=== PATIENT | female | born 1955 | race Caucasian/White ===

== ENCOUNTER → 2016-10-24 | Outpatient (CLI) | payer MEDICARE, BC ==
[~2016-10-24] VITALS: Ht 162.6 cm; Wt 68.3 kg
[~2016-10-24] MED LIST: ACIDOPHILIS PO; ATIVAN 1MG T1 MG/TAB PO; COLACE 100100 MG/CAP PO; COUMADIN 3MG3 MG/TAB PO; COZAAR 50MG50 MG/TAB PO; DUO-KAPS1 CAP PO; EFFEXOR-XR150 MG PO; LAMICTAL 100MG100 MG PO; MYRBETR25MG PO; NATURE'S BLEND160 MG PO; NEURONTIN100 MG/CAP PO; NORVASC 10MG10 MG PO; REQUIP5 MG PO; TOPROL XL 25MG25 MG PO; ZANTAC 150MG T150 MG PO
[2016-10-24 09:38] VITALS: BP 146/76; PULSE 78
== END ==
LOC: COL.CARD 09:06
DX: Z53.9 Procedure and treatment not carried out, unspecified reason (principal)

== ENCOUNTER → 2016-11-10 | Outpatient (CLI) | payer MEDICARE, BC ==
[~2016-11-10] VITALS: Ht 162.6 cm; Wt 63.0 kg
[2016-11-10 11:32] VITALS: BP 163/79; PULSE 72
[2016-11-10 12:12] VITALS: BP 170/80; PULSE 59
[2016-11-10 12:14] VITALS: BP 157/75; PULSE 89
[2016-11-10 12:15] VITALS: BP 159/79; PULSE 89
[2016-11-10 12:16] VITALS: BP 158/80; PULSE 84
== END ==
LOC: COL.CARD 10:45
DX: R06.00 Dyspnea, unspecified (principal); I77.1 Stricture of artery; I74.2 Embolism and thrombosis of arteries of the upper extremities
CPT/HCPCS: A9502; J2785

== ENCOUNTER → 2016-12-11 | Outpatient (CLI) | payer MEDICARE, BC | LOC: COL.RAD 10:00 | DX: I70.8 Atherosclerosis of other arteries (principal) | CPT/HCPCS: Q9967 ==

== ENCOUNTER → 2017-03-19 | Outpatient (REF) ==
[2017-03-19 19:13] LABS: C-REACTIVE PROTEIN 0.8 mg/dL (0.0-0.9)
[2017-03-19 19:41] LABS: THYROID STIMULATING HORMONE 1.55 uIU/mL (0.465-4.680)
== END ==
LOC: ZLAB.WCH 18:09
PROVIDERS: Internal Medicine
DX: Z01.89 Encounter for other specified special examinations (principal)

== ENCOUNTER 2018-11-19 15:30 | Emergency (ER) | payer MEDICARE, BC ==
[~2018-11-19] VITALS: Ht 162.6 cm; Wt 65.9 kg
[2018-11-19 15:37] VITALS: TEMP 98.3
[2018-11-19 16:13] LABS: BASO # 0.1 (0.0-0.2); BASO % 0.4 % (0.0-2.0); EOS # 0.3 (0.0-0.7); EOS % 1.8 % (0-4.0); GRAN # 9.5 (1.4-6.5); GRAN % 68.8 % (42.2-75.2); HEMATOCRIT 42.4 % (37.0-47.0); LYMPH # 2.6 (1.2-3.4); LYMPH % 18.6 % (20.0-51.0); MEAN CELL VOLUME 87 fl (80.0-100.0); MEAN CORPUSCULAR HEMOGLOBIN 29 pg (27.0-31.0); MEAN CORPUSCULAR HGB CONC 33 g/dl (33.0-37.0); MEAN PLATELET VOLUME 10.7 fl (7.4-10.4); MONO # 1.4 (0.1-0.6); MONO % 9.9 % (1.7-9.3); PLATELET COUNT 442 K/mm3 (130-400); RED BLOOD COUNT 4.85 M/mm3 (4.10-5.30); REDCELL DISTRIBUTION WIDTH-CV 14.2 % (11.5-14.5)
[2018-11-19 16:18] LABS: INR 1.2 (0.8-3.0); PROTHROMBIN TIME 13.1 SECONDS (9.7-12.8)
[2018-11-19] MEDS ORDERED: NORCO 325 MG-101 TAB (16:44)
[2018-11-19 17:17] LABS: ALBUMIN 4.6 gm/dL (3.5-5.0); BILIRUBIN,TOTAL 0.5 mg/dL (0.0-1.0); CREATININE, serum 0.74 (0.52-1.25); POTASSIUM 3.8 mmol/L (3.4-5.0); TOTAL PROTEIN 7.8 gm/dL (6.4-8.2)
[2018-11-19 21:19] VITALS: BP 195/90; PULSE 65
== END 2018-11-19 18:02 | disposition short-term general hospital (02) ==
LOC: COL.ER 15:30
PROVIDERS: Emergency Medicine
DX: I74.3 Embolism and thrombosis of arteries of the lower extremities (principal); I10 Essential (primary) hypertension; G62.9 Polyneuropathy, unspecified; Z90.710 Acquired absence of both cervix and uterus
CPT/HCPCS: J1170; J1644; J7030

== ENCOUNTER 2018-11-26 08:46 | Inpatient (IN) | payer MEDICARE, BC ==
[~2018-11-26] VITALS: Ht 162.6 cm; Wt 64.1 kg
[~2018-11-26 08:46] MED LIST changes: -DUO-KAPS1 CAP PO; +MULTI-VITAMIN W1 TA1 PO; +NORCO 325 MG-101 TAB
[2018-11-26 12:43] VITALS: BP 156/62; PULSE 65; TEMP 98.1
--- NOTE | 2018-11-26 13:50 | NUR ---
Pt admitted via wheelchair with STAFF ELECTRONIC WARFARE OFFICER assist. arrived and reviewed POC and home meds, pharmacy, and paperwork.
[2018-11-26] MEDS ORDERED: ROXICODONE 55 MG/TAB PO (15:27)
[2018-11-26] MEDS ORDERED: ASPIRIN 81M81 MG/TA2 PO (15:30)
[2018-11-26] MEDS ORDERED: LOVENOX 100100 MG/ML SQ (15:33)
[2018-11-26] MEDS ORDERED: NEURONTIN100 MG/CAP PO (15:35)
[2018-11-26] MEDS ORDERED: LAMICTAL 25MG T25 MG PO (15:37)
[2018-11-26] MEDS ORDERED: COUMADIN 3MG3 MG/TAB PO (15:39)
[2018-11-26] MEDS ORDERED: NORVASC 10MG10 MG PO (15:41)
[2018-11-26] MEDS ORDERED: DULCOLAX S10 MG/SUPP RC (15:42)
[2018-11-26] MEDS ORDERED: ZYRTEC 10MG10 MG PO (15:43)
[2018-11-26] MEDS ORDERED: MELAT3MGTAB PO (15:54)
[2018-11-26] MEDS ORDERED: AMBIEN 10MG10 MG PO (16:11)
[2018-11-26 18:13] VITALS: BP 160/63; PULSE 67; TEMP 97.3
--- NOTE | 2018-11-26 21:00 | NUR ---
HS meds all reviewed and given along with ativan to help relax/sleep. Patient alert and oriented x 4. LUE restricted in movement/tender to touch/weak radial pulse but warm/pink. Ambulates with cane held by RUE to the bathroom. Gait slow. Manages all toileting tasks. Handed patient clean panty liner. States did HS care earlier and cleanses hands with foam cleanser. Rests self back in bed. Lungs CTA. Pedal pulses feet strong. Hand career center advisor egual but only able to use first 2 fingers and thumb to orthodontist on her left.
--- NOTE | 2018-11-26 21:02 | NUR ---
Pt did therapies. Incision to LAC area is reddened, edges approximated and puckered up together, no dom, appears to have Sub-Q suture. Pt alert, pleasant, forgetful, anxious. Amb CGA with gait belt, cane. To bed with alarm on, call light in reach. She wrote her menus down for tomorrow. Report to ZOE Cardenas. Pt toileted without riser, continent in own underwear but uses pantyliner. No BM. Takes meds.
--- NOTE | 2018-11-27 00:19 | NUR ---
Patient rests quietly in bed. Respirations with ease.
--- NOTE | 2018-11-27 02:00 | NUR ---
Patient rests with eyes closed. Respirations with ease.
[2018-11-27 04:20] VITALS: BP 165/79; PULSE 67; TEMP 98.6
--- NOTE | 2018-11-27 05:06 | NUR ---
Patient up once during the night around 0300 to void. Rests with eyes closed. Respirations with ease.
[2018-11-27 05:56] VITALS: BP 165/83
[2018-11-27 07:30] LABS: INR 1.7 (0.8-3.0); PROTHROMBIN TIME 19.4 SECONDS (9.7-12.8)
--- NOTE | 2018-11-27 08:55 | NUR ---
Report from ZOE Cardenas. Pt to chair for breakfast. Called to dress prior to therapy. Amb with gait belt, CGA, to BR, continent, wears liner for stress incont. Set up for dressing. A&O, pleasant, takes pills with thin liquids. States she cannot drink Ensure d/t potassium level as she's on coumadin.
--- NOTE | 2018-11-27 09:53 | NUR ---
Initial visit; Patient thanked Taxi Dancer for looking in on her and offering God's blessings.
--- NOTE | 2018-11-27 12:26 | NUR ---
Pt has two friends visiting/praying with her.
--- NOTE | 2018-11-27 12:33 | NUR ---
Pt preferred to take neurontin early rather than oxycodone for pain. Provided nilsa crackers and peanut butter for snack after lunch.
--- NOTE | 2018-11-27 15:37 | NUR ---
SW met with patient for initial intake and to review team conference notes. Patient lives independently at home with her . Patient's PCP is Dr Carrillo and she obtains prescriptions from [facility] pharmacy. Patient does not use any home health services and she uses a cane for ambulation. Patient reports she does not have a DPOA. SW reported that the anticipated discharge date is Sunday 12/03 and she will receive outpatient PT and OT. Balbina also reported that the IPR would like to do a family conference on Saturday 12/02 at 1pm. BALBINA will contact patient's about this. BALBINA will continue to follow. BALBINA contacted patient's , Sixto. He reports he is available Sunday at 1pm for the family conference.
[2018-11-27 15:59] VITALS: BP 156/69; PULSE 68; TEMP 97.5
--- NOTE | 2018-11-27 18:46 | NUR ---
Pt in bed, alarm turned on, call lt in reach.
--- NOTE | 2018-11-27 20:30 | NUR ---
Patient up to the bathroom and voids and manages all toileting tasks. Rests back in bed. Has some numbness/tingling to finger tips and pain. HS meds along with ativan per request reviewed and given. Alert and oriented x 4. Pleasant. Lights turned down and door shut.
--- NOTE | 2018-11-28 00:30 | NUR ---
Rests with eyes closed. Respirations with ease.
--- NOTE | 2018-11-28 03:16 | NUR ---
Patient has been resting with eyes closed. Respirations with ease.
--- NOTE | 2018-11-28 03:18 | NUR ---
Patient has been resting with eyes closed. Respirations with ease.
[2018-11-28 05:39] VITALS: BP 133/75; BP 158/57; PULSE 66; TEMP 98.5
--- NOTE | 2018-11-28 05:45 | NUR ---
Patient awakened for vitals. States pain in fingers better this am 3/10. States woke up once during the night at 0200 to void and back to bed. Gait swaying at times when ambulates to the bathroom. Rests back in bed.
[2018-11-28 07:20] LABS: INR 2.1 (0.8-3.0); PROTHROMBIN TIME 23.7 SECONDS (9.7-12.8)
--- NOTE | 2018-11-28 08:42 | NUR ---
Report from ZOE Cardenas. Pt called after toileting. She had dressed herself, to sink with SBA for oral cares and hand hygiene. Reports LAC incisional pain 4/10 but 6/10 in palm. To wheelchair with alarm on, no foot rests, call light in reach.
--- NOTE | 2018-11-28 09:20 | NUR ---
Pt saved vanilla ensure for snack. Does not like her fingers referred to as "clubbed." She informed FATIMAH Ryan thusly.
--- NOTE | 2018-11-28 12:05 | NUR ---
Pt inquired about amount of Vit K in Theragran. Shawn, Pharmacist will return call.
--- NOTE | 2018-11-28 12:11 | NUR ---
Pt's , and a friend from [place] visiting.
--- NOTE | 2018-11-28 16:55 | NUR ---
Showed pt how to find radial and ulnar pulses with doplar to left arm. Marked with permanent marker for reference. Pt in wheelchair with alarm on.
--- NOTE | 2018-11-28 21:00 | NUR ---
PT SITTING UP IN BED. A&OX4. CHEERFUL AND TALKATIVE. LT RADIAL AND ULNAR ARTEIES AUSCUL WITH DOPPLER- ULNAR DIFFICULT TO FIND. ATIVAN GIVEN FOR HS SLEEP. PAIN TOLERABLE AT LEVEL 4/10. DENIES NEED FOR PAIN MED AT THIS TIME. LT ARM ELEVATED ON PILLOW. CALL LGHT IN REACH. BED ALARM SET.
[2018-11-29 04:46] VITALS: BP 135/71; BP 142/62; PULSE 67; TEMP 98.5
[2018-11-29 06:55] LABS: INR 2.7 (0.8-3.0); PROTHROMBIN TIME 30.7 SECONDS (9.7-12.8)
[2018-11-29 18:47] VITALS: BP 160/64; PULSE 73; TEMP 97.9
--- NOTE | 2018-11-29 19:25 | NUR ---
Patient attended all therapies today. She is now independent in her room and independent in the hallway with her cane. Patient tolerated diet well this shift. Pain very minimal to her left hand. Will continue to monitor.
--- NOTE | 2018-11-29 20:30 | NUR ---
PT SITTING ON SIDE OF BED. CHEERFUL. MOD I WITH CANE. ABLE TO FIND LEFT RADIAL/ULNAR PULSES WITH DOPPLER. DENIES NEED FOR PAIN MEDICATION.
[2018-11-30 05:07] VITALS: BP 139/59; BP 139/64; PULSE 64; TEMP 98.4
[2018-11-30 08:02] LABS: INR 2.7 (0.8-3.0); PROTHROMBIN TIME 30.9 SECONDS (9.7-12.8)
--- NOTE | 2018-11-30 09:49 | NUR ---
Patient currently working with therapy. Patient independent in her room and independent with getting dressed upper and lower as well as putting shoes on. Patient reporting 5/10 pain to left hand, but refused any pain meds this morning. Tolerating diet well. Denied questions this morning.
--- NOTE | 2018-11-30 14:53 | NUR ---
Patient ambulated with cane outside with staff for some fresh air. Patient reports pain to hand at 2/10 at this time and refuses any pain meds. Will continue to monitor.
[2018-11-30 17:48] VITALS: BP 115/54; PULSE 65; TEMP 97.7
--- NOTE | 2018-11-30 21:00 | NUR ---
PT MOD I IN ROOM/ HALLWAY. STEADY GAIT. DOPPLER USED TO FIND LT RADIAL/ ULNAR PULSES. FULL SENSATION TO HAND. MINIMAL PAIN TO LT ARM.
[2018-12-01 06:00] VITALS: BP 164/71; PULSE 74; TEMP 97.6
[2018-12-01 07:58] LABS: INR 2.6 (0.8-3.0); PROTHROMBIN TIME 29.8 SECONDS (9.7-12.8)
--- NOTE | 2018-12-01 09:39 | NUR ---
Report from ZOE Mcclelland. Pt migdalia Mod I in room/timmons with jelani.
[2018-12-01 10:19] VITALS: BP 147/61
--- NOTE | 2018-12-01 15:36 | NUR ---
Pt reports amb timmons with saeide, made her menus, showered, denied any needs.
[2018-12-01 18:59] VITALS: BP 144/62; PULSE 84; TEMP 97.8
--- NOTE | 2018-12-01 21:00 | NUR ---
PT VERY PLEASANT. MOD I IN ROOM AND JJ. PAIN CONTROLLED. DOPPLER TO LT RADIAL AND ULNAR PULSES PRESENT.
[2018-12-02 05:18] VITALS: BP 108/55; PULSE 65; TEMP 98.6
[2018-12-02 06:59] LABS: INR 2.1 (0.8-3.0); PROTHROMBIN TIME 23.6 SECONDS (9.7-12.8)
[2018-12-02 08:00] VITALS: BP 152/66; BP 163/56; PULSE 68; PULSE 71
--- NOTE | 2018-12-02 13:00 | NUR ---
A Family Conference was conducted with pt & pt's . Also present was PT, OT, & Public Employment Mediator. Public Employment Mediator started by explaining the purpose of the meeting. The therapists explained how pt has been functioning & making good progress. Informed them of scheduled d/c for 12/03/18, which they were both fine w/. Discussed recommendations of outpatient PT/OT, which again they were okay w/. The asked questions which team answered. Pt & are pleased with progress & care pt is receiving.
--- NOTE | 2018-12-02 14:36 | NUR ---
SW met with patient to check in after the weekend. Patient reports she had a good weekend and happy to be discharging home tomorrow. SW will follow up with patient tomorrow before discharge.
[2018-12-02 15:45] VITALS: BP 157/65; PULSE 69; TEMP 98.1
--- NOTE | 2018-12-02 17:50 | NUR ---
Patient attended all therapies today. She continues to be independent in her room and in the hallways. Patient was given a suppository today, but patient inserted it herself. Patient independent with all grooming today. Independent with transfers/toileting/grooming/eating.
--- NOTE | 2018-12-02 21:00 | NUR ---
PT WAS ADMISNISTERED HS MEDS, DOPPLER OF PULSES DONE TO LT LOWER EXTREM, PULSE WAS NOTED TO BOTH AREAS MAKED.
--- NOTE | 2018-12-02 21:30 | NUR ---
PT WAS ADMISNISTERED HS MEDS, DOPPLER OF PULSES DONE TO LT UPPER EXTREM, PULSE WAS NOTED TO BOTH MARKED
--- NOTE | 2018-12-02 21:30 | NUR ---
PT WAS ADMISNISTERED HS MEDS, DOPPLER OF PULSES DONE TO LT UPPER EXTREM, PULSE WAS NOTED TO BOTH AREAS MARKED.
[2018-12-03 05:23] VITALS: BP 143/64; PULSE 66; TEMP 98.4
--- NOTE | 2018-12-03 05:35 | NUR ---
PT WAS ADMISNISTERED HS MEDS, DOPPLER OF PULSES DONE TO LT UPPER EXTREM, PULSE WAS NOTED TO BOTH AREAS MARKED.
--- NOTE | 2018-12-03 05:36 | NUR ---
PT WAS ADMISNISTERED HS MEDS, DOPPLER OF PULSES DONE TO LT UPPER EXTREM, PULSE WAS NOTED TO BOTH MARKED AREAS
--- NOTE | 2018-12-03 05:38 | NUR ---
PT HAD UNEVENTFUL NOC. NO C/O PAIN OR NOTED N/V/D. ORTHOS OBTAINED THIS AM ON PT ORDERED. NO ISSUES OR CONSERNS VOICED OVERNIGHT. APPEARED TO HAVE SLEPT WELL.
[2018-12-03 06:00] VITALS: BP 108/55
[2018-12-03 07:24] LABS: INR 1.9 (0.8-3.0); PROTHROMBIN TIME 21.7 SECONDS (9.7-12.8)
[2018-12-03] MEDS ORDERED: COUMADIN 5MG5 MG/TAB PO (08:47)
[2018-12-03] MEDS ORDERED: TYLENOL 325MG325 MG PO (08:48)
[2018-12-03] MEDS ORDERED: COUMADIN 2MG2 MG/TAB PO (08:48)
[2018-12-03] MEDS ORDERED: PROBIOTIC ACID1 EAC3 PO (08:49)
[2018-12-03] MEDS ORDERED: GOOD SENSE TRIP1 OI1 TP (08:50)
--- NOTE | 2018-12-03 09:31 | NUR ---
SW student met with patient to complete the IM form. SW student presented and explained form. Patient verbalized understanding and signed. SW student provided copy. Patient is to discharge today (12/03) back home with her . No additional needs.
--- NOTE | 2018-12-03 15:08 | NUR ---
Called pt's pharmacy for ordering prescriptions they did not have at home.
--- NOTE | 2018-12-03 22:14 | NUR ---
Printed Pt health summary, discharge summary, and home med list and reviewed with pt and spouse, Sixto. Stressed importance of follow up appts and taking paperwork and orders to these. Reviewed meds, and stressed changes to meds. Belongings gathered by pt and spouse, including cane, glasses, cell phone and sound recordist and clothes. Pt ambulated to vehicle, escourted by SARAH Azevedo for ride home. Pt and denied any questions.
== END 2018-12-03 15:23 | disposition home or self-care (01) | DRG 948 ==
PROVIDERS: ADMIT Internal Medicine
DX: R53.81 Other malaise (principal); G23.9 Degenerative disease of basal ganglia, unspecified; Z66 Do not resuscitate; I70.8 Atherosclerosis of other arteries; I10 Essential (primary) hypertension; F41.8 Other specified anxiety disorders; G25.81 Restless legs syndrome; G13.8 Systemic atrophy primarily affecting central nervous system in other diseases classified elsewhere; Z79.01 Long term (current) use of anticoagulants; I95.1 Orthostatic hypotension
CPT/HCPCS: 99222-AI; 99232-AI; 99239; J1650

== ENCOUNTER → 2019-03-11 | Outpatient (RCR) | payer MEDICARE, BC ==
[~2019-03-11] MED LIST changes: +AMBIEN 10MG10 MG PO; +ASPIRIN 81M81 MG/TA2 PO; +COUMADIN 2MG2 MG/TAB PO; +COUMADIN 5MG5 MG/TAB PO; +DULCOLAX S10 MG/SUPP RC; +GOOD SENSE TRIP1 OI1 TP; +LAMICTAL 25MG T25 MG PO; +LOVENOX 100100 MG/ML SQ; +MELAT3MGTAB PO; +PROBIOTIC ACID1 EAC3 PO; +ROXICODONE 55 MG/TAB PO; +TYLENOL 325MG325 MG PO; +ZYRTEC 10MG10 MG PO
== END | disposition still patient (30) ==
LOC: WSC → WSOT 12-17 14:30 → WSC 01-29 13:30 → WSOT 02-04 12:45 → WSPT 02-14 12:45 → WSOT 02-18 13:30 → WSC 02-25 13:30 → WSOT 02-27 13:30 → WSPT 03-04 12:45 → WSC 03-06 12:45
DX: G90.3 Multi-system degeneration of the autonomic nervous system (principal); R53.81 Other malaise

== ENCOUNTER → 2019-06-12 | Outpatient (RCR) | payer MEDICARE, BC | END | disposition still patient (30) | LOC: WSOT → WSC 03-14 13:00 → WSOT 03-17 12:45 | DX: M54.5 Low back pain (principal); R53.1 Weakness ==

== ENCOUNTER → 2019-08-18 | Outpatient (CLI) | payer MEDICARE, BC | LOC: COL.RAD 10:18 | DX: I77.1 Stricture of artery (principal); I65.23 Occlusion and stenosis of bilateral carotid arteries; I65.02 Occlusion and stenosis of left vertebral artery | CPT/HCPCS: Q9967 ==

== ENCOUNTER → 2024-03-25 | Outpatient (CLI) | payer MEDICARE, BC | LOC: COL.RAD 13:51 | DX: I65.22 Occlusion and stenosis of left carotid artery (principal) ==

== ENCOUNTER → 2024-04-22 | Outpatient (CLI) | payer MEDICARE, BC | LOC: MC.RAD 13:50 | DX: Z12.31 Encounter for screening mammogram for malignant neoplasm of breast (principal) ==